=== PATIENT | female | born 1940 | race Caucasian/White ===

== ENCOUNTER 2022-11-05 21:34 | Inpatient (IN) | payer OTHER, SELFPAY ==
[2022-11-05 22:07] VITALS: BP 117/56; PULSE 87; RESP 18; TEMP 36.6; O2SAT 99
--- NOTE | 2022-11-06 04:38 | PC.NURSE ---
Patient is 82 y/o female admitted from ED via stretcher at 22:04 on a 12b section. Patient was referred from [facility] related to a history of multiple psychiatric inpatient care for depression and suicidal ideation. Patient lives alone in an apartment complex and presented more than 10 times in the past month to the ER with complaints of palpitations, anxiety, depression associated with her living condition. Patient has been experiencing delusions about an unruly neighbor who keeps banging and slamming his door to antagonize her, causing her undue stress. Patient called the police was called several times who could not corroborate her allegations. Patient was alert and oriented x 3 upon arrival, mildly agitated and angry, Speech is soft and clear, good eye contact during conversations, noted to have little to no insight on her situation. Stated that she does not want to be here against her will and wanted to go home. Patient fixated during assessment interview on neighbor Aravind Paige the [place] who keeps slamming his door and nobody would do anything about it. Endorsed feeling depressed, she denied any HI/SI/AH/VH. Patient acknowledged making statements of self harm out of hopelessness about living situation and declining ability to care for self. Patient quickly added that she would never hurt herself because of her religion belief, Latter day. Medical problems include anemia, atrial flutter, GERD, HDL; Hx of small bowel disease, opioid misuse. Vitals signs stable, no complaints of pain. call center support representative provider notified of admission. .......................................................................................................................................................................................................................................................... .......................................................................................................................................................................................................................................................... ............................................................................
[2022-11-06] MEDS: Acetaminophen 325 MG TABLET 650 MG PO ×2 (06:10→15:42)
[2022-11-06 06:39] LABS: Alanine Aminotransferase 10 U/L (0-31); Albumin Level 3.9 g/dL (3.5-5.0); Alkaline Phosphatase 93 U/L (39-117); Anion Gap 14 (12-20); Aspartate Amino Transferase 20 U/L (5-31); Blood Urea Nitrogen 15 mg/dL (9-16); Calcium 9.3 mg/dL (8.4-10.2); Carbon Dioxide 25 mmol/L (22-29); Chloride 106 mmol/L (96-108); Estimated Glomerular Filt Rate 54; Glucose Random 111 mg/dL (60-115); Potassium 3.9 mmol/L (3.3-5.1); Sodium 141 mmol/L (135-145); Total Protein 6.6 g/dL (6.5-8.0)
[2022-11-06 08:27] VITALS: BP 109/61; PULSE 85; RESP 20; TEMP 36.1; O2SAT 97
[2022-11-06] MEDS: Furosemide 20 MG TABLET PO (08:58)
--- NOTE | 2022-11-06 11:11 | HO.PM.IMCN ---
History of Present Illness Data of Consult Service Date: 11/06/22 Primary Care Provider: Unknown Physician HPI Reason for consult: Admission H&P Pt is an 82-year-old female with a PMH significant for?paroxysmal atrial flutter on Eliquis, mild intermittent asthma, HLD, HTN, chronic normocytic anemia, GERD, hypothyroidism, hx of opioid dependence, and depression who is admitted to [facility] for increasing agitation, passive SI, and persistent delusions about her neighbor persecuting her. Medical consult for admission H&P. ?During interview patient's only complaint is against her neighbor. Patient perseverating over her neighbor purposely bothering her by ?slamming his door? again and again. Patient has no acute medical complaints. Chronic back pain well controlled with acetaminophen. No chest pain/pressure, palpitations. Denies shortness of breath. No fever, chills, nausea, vomiting, diarrhea, abdominal pain. Patient with a history of asthma, the patient states she has not had an asthma exacerbation in a ?very long time?. Patient also does not know the last time she used her rescue inhaler. Review of Systems Review of Systems: Chronic back pain Patient has no acute medical complaints at this time Yes all other systems are reviewed and are negative PMFSH Social History Household Members: None Housing: Apartment Do you presently have visiting nurse or other home services: Yes ([employer]) Patient Tobacco Use Status: Never used Tobacco Use of substances other than those prescribed or required for medical reasons: No Currently Displaying Signs/Symptoms of Drug Intoxication Withdrawal: No Have you been hit, kicked, punched, or otherwise hurt by someone within the past year? If so, by whom?: No Do you feel safe in your current relationship?: No Current Relationship Is there a partner from a previous relationship who is making you feel unsafe now?: No Are you made to feel afraid or neglected: No Spiritual Healthcare Practices: Yazidism. Presybeterian Healthcare Practices: Yazidism. Cultural Healthcare Practices: Yazidism. Advance Directives: No Advance Directives Information Provided: No Do you have thoughts of harming others: None Do you have a plan to hurt others: No Plan Recently lost weight without trying: Unsure How much weight loss: Unsure Eating poorly because of decreased appetite: No Nutrition screen score: 4 Patient : No Poor oral hygiene: No Meds Allergies Allergy/AdvReac Type Severity Reaction Status Date / Time amoxicillin [From Augmentin] AdvReac Nausea and Verified 11/06/22 01:25 Vomiting aspirin AdvReac Nausea and Verified 11/06/22 01:27 Vomiting atenolol AdvReac Painful Verified 11/06/22 01:34 legs and moving toes clavulanic acid AdvReac Nausea and Verified 11/06/22 01:25 [From Augmentin] Vomiting doxycycline AdvReac Nausea Verified 11/06/22 01:33 erythromycin base AdvReac Nausea and Verified 11/06/22 01:25 Vomiting ibuprofen AdvReac Nausea and Verified 11/06/22 01:33 Vomiting levofloxacin [From Levaquin] AdvReac Nausea, Verified 11/06/22 01:25 Rash NSAIDS (Non-Steroidal AdvReac Nausea and Verified 11/06/22 01:27 Anti-Inflamma Vomiting raloxifene [From Evista] AdvReac Nausea and Verified 11/06/22 01:27 Vomiting terbinafine [From Lamisil] AdvReac Nausea and Verified 11/06/22 01:25 Vomiting Active Medications: Current Medications Acetaminophen (Acetaminophen 325 Mg Tablet) 650 mg PO Q6H PRN PRN Reason: Headache/Pain Mild Scale (1-3) Last Admin: 11/06/22 06:10 Dose: 650 mg Al Hydroxide/Mg Hydroxide (Magnesium Hydrox/Alum Hydrox 30 Ml Oral.Susp) 30 ml PO Q6H PRN PRN Reason: Heartburn/Nausea Furosemide (Furosemide 20 Mg Tablet) 20 mg PO DAILY JIM; Protocol Last Admin: 11/06/22 08:58 Dose: 20 mg Magnesium Hydroxide (Milk Of Magnesia 30 Ml Oral.Susp) 30 ml PO DAILY PRN PRN Reason: Constipation Home Medications Medication Instructions Recorded Confirmed Last Taken Type albuterol 90 mcg/actuation aerosol 180 mcg inhalation Q4H PRN Wheezing 11/06/22 11/06/22 Unknown History inhaler aluminum-mag hydroxide-simethicone 30 ml PO Q8H PRN Indigestion 11/06/22 11/06/22 11/05/22 16:18 History 225 mg-200 mg-25 mg/5 mL oral susp apixaban 2.5 mg tablet 2.5 mg PO BID 11/06/22 11/06/22 11/05/22 09:14 History atorvastatin 40 mg tablet 40 mg PO DAILY 11/06/22 11/06/22 11/05/22 09:14 History bupropion HCl 150 mg 24 hr tablet, 150 mg PO DAILY 11/06/22 11/06/22 11/04/22 23:33 History extended release duloxetine 30 mg capsule,delayed 30 mg PO DAILY 11/06/22 11/06/22 11/05/22 09:14 History release furosemide 20 mg tablet 20 mg DAILY 11/06/22 11/06/22 11/05/22 09:14 History gabapentin 100 mg capsule 200 mg PO BID 11/06/22 11/06/22 11/05/22 09:16 History levothyroxine 50 mcg tablet 50 mcg PO DAILY 11/06/22 11/06/22 11/05/22 07:20 History metoprolol tartrate 50 mg tablet 50 mg PO BID 11/06/22 11/06/22 11/04/22 23:32 History ondansetron HCl 4 mg tablet 4 mg PO Q8H PRN Nausea And Vomiting 11/06/22 11/06/22 Unknown History pantoprazole 40 mg tablet,delayed 40 mg PO DAILY 11/06/22 11/06/22 11/05/22 09:14 History release prochlorperazine maleate 5 mg 5 mg PO DAILY PRN Dyspepsia 11/06/22 11/06/22 Unknown History tablet trazodone 50 mg tablet 50 mg PO BEDTIME 11/06/22 11/06/22 11/04/22 23:32 History Physical Exam Vital Signs and Narrative: Vital Signs: Last Vital Signs Temp 97.0 F 11/06/22 08:27 Pulse 85 11/06/22 08:27 Resp 20 11/06/22 08:27 BP 109/61 11/06/22 08:27 Pulse Ox 97 11/06/22 08:27 O2 Del Method Room Air 11/06/22 08:27 Constitutional: Alert, in no acute distress. Mental Status: Oriented to person, place and time. Eyes: Pupils are equal, round, and reactive to light. Ear, Nose, and Throat: Oropharynx clear, mucous membranes moist. Ears and nose without deformities. Trachea midline. Respiratory: Clear to auscultation bilaterally. No wheezing, rales, or rhonchi. Cardiovascular: S1, S2 regular. No murmurs, rubs, or gallops. Gastrointestinal: Abdomen soft, non-tender, non-distended. Normal bowel sounds. Neurologic: Cranial nerves II-XII are grossly intact bilaterally. No focal neurological deficits. Moves all extremities spontaneously. Skin: No rashes or lesions noted. Musculoskeletal: No cyanosis or clubbing. Extremities: No edema. Psychiatric: Normal mood and affect, perseverating on her neighbor bothering her by slamming his door. Results Labs 11/06/22 06:15 Labs: Laboratory Results - last 24 hr 11/06/22 06:15 Anion Gap 14 Estim Creat Clear Calc TNP Estimated GFR 54 Random Glucose 111 Calcium 9.3 Total Bilirubin 1.0 AST 20 ALT 10 Alkaline Phosphatase 93 Total Protein 6.6 Albumin 3.9 Assessment and Plan (1) Routine history and physical examination of adult: Status: Acute Plan Pt is an 82-year-old female with a PMH significant for?paroxysmal atrial flutter on Eliquis, mild intermittent asthma, HLD, HTN, chronic normocytic anemia, GERD, hypothyroidism, hx of opioid dependence, and depression who is admitted to [facility] for increasing agitation, passive SI, and persistent delusions about her neighbor persecuting her. Medical consult for admission H&P. ?During interview patient's only complaint is against her neighbor. Patient perseverating over her neighbor purposely bothering her by ?slamming his door? again and again. Patient has no acute medical complaints. Mood disorder Plan as per Psychiatry Paroxysmal atrial flutter Continue metoprolol, Eliquis Normocytic anemia, chronic Patient apparently has had chronic stable anemia since 2000 Most current H&H stable at 11.2/36.6 Chronic back pain Acetaminophen per pain Mild intermittent asthma Not in acute exacerbation Patient said it has been ?a long time? since last exacerbation Patient does not remember last time she used an inhaler Albuterol inhaler p.r.n. for wheezing GERD Continue pantoprazole Hypothyroidism Continue levothyroxine HLD Continue statin HTN Continue furosemide Thank you for allowing us to participate in the care of this patient. Signing off at this time. Please let us know if there are any acute complaints or questions. Time Spent With Patient Time: Total time managing care of this patient today ____ minutes.
--- NOTE | 2022-11-06 12:42 | HO.PSYADMNOT ---
[facility] Date of Service: 11/06/22 Chief Complaint: Anxiety Disorder Sources of Information: patient interviewed, chart reviewed and crisis/core team assessment reviewed HPI Narrative: Patient is an 82-year-old female with history of depression and SI, AFib, with frequent emergency room visits for palpitations but found to be within NSR... who lives at [facility] and presents for making suicidal statement. Patient reports that she has been having a hard time since the person who lives across the [place] is planning his door frequently which she believes is to purposely bother her. She says she is depressed because she is not getting any rest and the staff let him do it. Patient denies any SI. She said she did think about it but she could never do it and would never go against God. [employer] Specialist inquired as to whether not patient made such a comment to staff and she acknowledged that she did make a suicidal comment but that when she is upset she says thing she does not mean and reiterates she would never harm herself. Patient does not want to be on the unit in the hospital. She wants to return to her living situation. She hopes the staff will either move his apartment or hers so that she can get relief from his constant slamming of the door. Care team note indicates that patient is having an auditory hallucination and delusional experience of the door slamming. Sending facility reports that patient after 1 of her numerous visits to the ED, she will go home and immediately call the ambulance to come back to the hospital. Patient's sister Ashlee Mendez is her healthcare proxy Past Psychiatric History: Deferred Medical Evaluation Reviewed: Hospitalist Marium Pending [facility] Family History: Possibly niece with bipolar disorder Social History: Lives at [facility] Patient's younger sister Ashlee is healthcare proxy Substance History: Some history of opiate misuse reported in notes Trauma History: Deferred Diagnostics Vital Signs (24Hr): Vital Signs - 24 hr 11/05/22 22:07 11/06/22 08:27 Temperature 98 F 97.0 F Pulse Rate 87 85 Respiratory Rate 18 20 Blood Pressure 117/56 L 109/61 Pulse Oximetry 99 97 Oxygen Delivery Method Room Air Room Air Labs 11/06/22 06:15 Labs: Laboratory Results - last 48 hr 11/06/22 06:15 Sodium 141 Potassium 3.9 Chloride 106 Carbon Dioxide 25 Anion Gap 14 BUN 15 Creatinine 0.98 Estim Creat Clear Calc TNP Estimated GFR 54 Random Glucose 111 Calcium 9.3 Total Bilirubin 1.0 AST 20 ALT 10 Alkaline Phosphatase 93 Total Protein 6.6 Albumin 3.9 Meds/Allergies Meds Home Medications Medication Instructions Recorded Confirmed Type albuterol 90 mcg/actuation aerosol 180 mcg inhalation Q4H PRN Wheezing 11/06/22 11/06/22 History inhaler aluminum-mag hydroxide-simethicone 30 ml PO Q8H PRN Indigestion 11/06/22 11/06/22 History 225 mg-200 mg-25 mg/5 mL oral susp apixaban 2.5 mg tablet 2.5 mg PO BID 11/06/22 11/06/22 History atorvastatin 40 mg tablet 40 mg PO DAILY 11/06/22 11/06/22 History bupropion HCl 150 mg 24 hr tablet, 150 mg PO DAILY 11/06/22 11/06/22 History extended release duloxetine 30 mg capsule,delayed 30 mg PO DAILY 11/06/22 11/06/22 History release furosemide 20 mg tablet 20 mg DAILY 11/06/22 11/06/22 History gabapentin 100 mg capsule 200 mg PO BID 11/06/22 11/06/22 History levothyroxine 50 mcg tablet 50 mcg PO DAILY 11/06/22 11/06/22 History metoprolol tartrate 50 mg tablet 50 mg PO BID 11/06/22 11/06/22 History ondansetron HCl 4 mg tablet 4 mg PO Q8H PRN Nausea And Vomiting 11/06/22 11/06/22 History pantoprazole 40 mg tablet,delayed 40 mg PO DAILY 11/06/22 11/06/22 History release prochlorperazine maleate 5 mg 5 mg PO DAILY PRN Dyspepsia 11/06/22 11/06/22 History tablet trazodone 50 mg tablet 50 mg PO BEDTIME 11/06/22 11/06/22 History Allergies Allergies Allergy/AdvReac Type Severity Reaction Status Date / Time amoxicillin [From Augmentin] AdvReac Nausea and Verified 11/06/22 01:25 Vomiting aspirin AdvReac Nausea and Verified 11/06/22 01:27 Vomiting atenolol AdvReac Painful Verified 11/06/22 01:34 legs and moving toes clavulanic acid AdvReac Nausea and Verified 11/06/22 01:25 [From Augmentin] Vomiting doxycycline AdvReac Nausea Verified 11/06/22 01:33 erythromycin base AdvReac Nausea and Verified 11/06/22 01:25 Vomiting ibuprofen AdvReac Nausea and Verified 11/06/22 01:33 Vomiting levofloxacin [From Levaquin] AdvReac Nausea, Verified 11/06/22 01:25 Rash NSAIDS (Non-Steroidal AdvReac Nausea and Verified 11/06/22 01:27 Anti-Inflamma Vomiting raloxifene [From Evista] AdvReac Nausea and Verified 11/06/22 01:27 Vomiting terbinafine [From Lamisil] AdvReac Nausea and Verified 11/06/22 01:25 Vomiting Mental Status Exam Mental Status Exam Narrative: Pt is alert and oriented; behavior is cooperative, friendly and calm; patient is not in distress; dressed in casual attire with adequate hygiene; mood is described as depressed and affect anxious; eye contact appropriate; Speech is normal rate, volume and prosody and not pressured; no psychomotor agitation/retardation present; thought process is goal directed; Thought content is on problem at living situation, upset that neighbor is slamming the door; no overt delusional content expressed; denies any SI/HI. Unclear if patient has auditory hallucinations. Patients insight and judgment impaired; unclear the degree Assessment & Plan Assessment & Plan (1) Adjustment disorder with mixed disturbance of emotions and conduct: Status: Acute Code(s): F43.25 - Adjustment disorder with mixed disturbance of emotions and conduct Plan Patient is an 82-year-old female with history of depression and SI, AFib, with frequent emergency room visits for palpitations but found to be within NSR... who lives at [facility] and presents for making suicidal statement. Patient reports that she has been having a hard time since the person who lives across the [place] is planning his door frequently which she believes is to purposely bother her. She denies SI saying that although she made a comment she would never actually hurt herself Formulation: -at this time will diagnose with adjustment disorder with disturbance of emotions and conduct; will need to further assess for dementia and other possible psychiatric processes including delusional/AVH -sending facility expresses concern is that patient may be having auditory hallucinations and delusional belief of the door slamming. Sending facility reports that patient after 1 of her numerous visits to the ED, she will go home and immediately call the ambulance to come back to the hospital. Will need collateral to assess -EKG normal sinus rhythm; review of labs CBC, lytes, BUN/creatinine WNL; COVID negative; on admission, reordered lytes, BUN/creatinine and liver enzymes and within normal limits does not appear UA was ordered so will order one now -Patient's sister Ashlee Mendez is her healthcare proxy PLAN: Section 12 b Q 15 minute checks Continue home meds Will gather collateral Will order UA since it was not done at sending facility Patient educated on: diagnosis Informed Consent: further education needed Reason for continued inpatient stay Substantial Risk for: inability to function Statement Statement: I have reviewed the history and physical and performed a pertinent examination on my patient. No changes have occurred unless specified. If the History and Physical was not performed prior to admission, the Hospitalist's service will be consulted for completing the admission physical. Time Spent With Patient Time: Total time managing care of this patient today ____ minutes.
[2022-11-06 13:28] VITALS: BMI 26.2
[2022-11-06] MEDS: Apixaban 2.5 MG TABLET PO ×2 (13:41→20:36)
[2022-11-06] MEDS: Gabapentin 100 MG CAPSULE 200 MG PO ×2 (13:41→20:36)
[2022-11-06] MEDS: Atorvastatin Calcium 40 MG TABLET PO (13:41)
[2022-11-06 19:50] VITALS: BP 132/68; PULSE 88; RESP 18; TEMP 36.8; O2SAT 98
[2022-11-07] MEDS: Omeprazole 20 MG CAPSULE.DR PO (05:58)
[2022-11-07] MEDS: Levothyroxine Sodium 50 MCG TABLET PO (05:58)
[2022-11-07 07:51] LABS: Alanine Aminotransferase 9 U/L (0-31); Albumin Level 3.9 g/dL (3.5-5.0); Alkaline Phosphatase 90 U/L (39-117); Aspartate Amino Transferase 18 U/L (5-31); Bilirubin Total 1.1 mg/dL (0.0-1.0); Blood Urea Nitrogen 16 mg/dL (9-16); Calcium 9.8 mg/dL (8.4-10.2); Creatinine Clr Calc Pharmacy 30.9; Estimated Glomerular Filt Rate 52; Glucose Fasting 100 mg/dL (60-99); Total Protein 6.7 g/dL (6.5-8.0)
[2022-11-07 08:11] VITALS: BP 143/63; PULSE 71; RESP 18; TEMP 36.3; O2SAT 100
[2022-11-07 08:23] LABS: Anion Gap 16 (12-20); Carbon Dioxide 24 mmol/L (22-29); Chloride 104 mmol/L (96-108); Sodium 140 mmol/L (135-145)
[2022-11-07] MEDS: Acetaminophen 325 MG TABLET 650 MG PO ×2 (10:02→18:45)
[2022-11-07] MEDS: Furosemide 20 MG TABLET PO (10:02)
[2022-11-07] MEDS: Apixaban 2.5 MG TABLET PO ×2 (10:02→20:15)
[2022-11-07] MEDS: Atorvastatin Calcium 40 MG TABLET PO (10:02)
[2022-11-07] MEDS: Gabapentin 100 MG CAPSULE 200 MG PO ×2 (10:02→20:16)
--- NOTE | 2022-11-07 12:13 | P.PNPSI_ITS ---
Subjective Subjective Date of Service: 11/07/22 Reason For Visit: Anxiety Disorder Interim History: Met with patient; discussed with team Patient remains pleasant and cooperative. She acknowledges that she can get confused but that she is trying her best. Patient said she had some trouble sleeping because the neighbor was slamming the door last night. She said at least that is my experience. Of note, nursing staff did say it is possible that a nearby door was slammed but that AH remains a possibility. Otherwise patient reported to be sleeping well; patient is eating well; taking medications Mental Status Exam Mental Status Exam Narrative: Pt is alert and oriented; behavior is cooperative, friendly and calm; patient is not in distress; dressed in casual attire with adequate hygiene; mood is described as ok and affect anxious; eye contact appropriate; Speech is normal rate, volume and prosody and not pressured; no psychomotor agitation/retardation present; thought process is goal directed; Thought content is on problem at living situation, upset that neighbor is slamming the door; no overt delusional content expressed; denies any SI/HI. possibly AH of door slamming. Patients insight and judgment impaired; unclear the degree Diagnostics Vital Signs (24Hr): Vital Signs - 24 hr 11/06/22 19:50 11/07/22 08:11 Temperature 98.2 F 97.3 F Pulse Rate 88 71 Respiratory Rate 18 18 Blood Pressure 132/68 143/63 H Pulse Oximetry 98 100 Oxygen Delivery Method Room Air Room Air BMI result Body Mass Index 26.2 Labs 11/07/22 07:00 Labs: Laboratory Results - last 48 hr 11/06/22 11/07/22 06:15 07:00 Sodium 141 140 Potassium 3.9 4.0 Chloride 106 104 Carbon Dioxide 25 24 Anion Gap 14 16 BUN 15 16 Creatinine 0.98 1.01 Estim Creat Clear Calc TNP 30.9 Estimated GFR 54 52 Random Glucose 111 Fasting Glucose 100 H Calcium 9.3 9.8 Total Bilirubin 1.0 1.1 H AST 20 18 ALT 10 9 Alkaline Phosphatase 93 90 Total Protein 6.6 6.7 Albumin 3.9 3.9 Medications Medications Current Medications Acetaminophen (Acetaminophen 325 Mg Tablet) 650 mg PO Q6H PRN PRN Reason: Headache/Pain Mild Scale (1-3) Last Admin: 11/07/22 10:02 Dose: 650 mg Al Hydroxide/Mg Hydroxide (Magnesium Hydrox/Alum Hydrox 30 Ml Oral.Susp) 30 ml PO Q6H PRN PRN Reason: Heartburn/Nausea Albuterol Sulfate (Albuterol Sulfate 90 Mcg 8 Gm Inhaler) 2 puff INHALE Q4H PRN PRN Reason: Wheezing Apixaban (Apixaban 2.5 Mg Tablet) 2.5 mg PO BID [facility] Last Admin: 11/07/22 10:02 Dose: 2.5 mg Atorvastatin Calcium (Atorvastatin Calcium 40 Mg Tablet) 40 mg PO DAILY [facility] Last Admin: 11/07/22 10:02 Dose: 40 mg Furosemide (Furosemide 20 Mg Tablet) 20 mg PO DAILY [facility]; Protocol Last Admin: 11/07/22 10:02 Dose: 20 mg Gabapentin (Gabapentin 100 Mg Capsule) 200 mg PO BID [facility] Last Admin: 11/07/22 10:02 Dose: 200 mg Levothyroxine Sodium (Levothyroxine Sodium 50 Mcg Tablet) 50 mcg PO DAILY@0600 [facility] Last Admin: 11/07/22 05:58 Dose: 50 mcg Magnesium Hydroxide (Milk Of Magnesia 30 Ml Oral.Susp) 30 ml PO DAILY PRN PRN Reason: Constipation Omeprazole (Omeprazole 20 Mg Capsule.Dr) 20 mg PO DAILY@0630 [facility] Last Admin: 11/07/22 05:58 Dose: 20 mg Ondansetron HCl (Ondansetron Odt 4 Mg Tab.Rapdis) 4 mg TRANSLINGU Q8H PRN PRN Reason: Nausea And Vomiting Prochlorperazine Maleate (Prochlorperazine Maleate 5 Mg Tablet) 5 mg PO DAILY PRN PRN Reason: Dyspepsia Trazodone HCl (Trazodone Hcl 25 Mg Halftab) 25 mg PO BEDTIME PRN PRN Reason: insomnia Allergies Allergies Allergy/AdvReac Type Severity Reaction Status Date / Time amoxicillin [From Augmentin] AdvReac Nausea and Verified 11/06/22 01:25 Vomiting aspirin AdvReac Nausea and Verified 11/06/22 01:27 Vomiting atenolol AdvReac Painful Verified 11/06/22 01:34 legs and moving toes clavulanic acid AdvReac Nausea and Verified 11/06/22 01:25 [From Augmentin] Vomiting doxycycline AdvReac Nausea Verified 11/06/22 01:33 erythromycin base AdvReac Nausea and Verified 11/06/22 01:25 Vomiting ibuprofen AdvReac Nausea and Verified 11/06/22 01:33 Vomiting levofloxacin [From Levaquin] AdvReac Nausea, Verified 11/06/22 01:25 Rash NSAIDS (Non-Steroidal AdvReac Nausea and Verified 11/06/22 01:27 Anti-Inflamma Vomiting raloxifene [From Evista] AdvReac Nausea and Verified 11/06/22 01:27 Vomiting terbinafine [From Lamisil] AdvReac Nausea and Verified 11/06/22 01:25 Vomiting Assessment & Plan Assessment & Plan (1) Adjustment disorder with mixed disturbance of emotions and conduct: Status: Acute Code(s): F43.25 - Adjustment disorder with mixed disturbance of emotions and conduct Plan Patient is an 82-year-old female with history of depression and SI, AFib, with frequent emergency room visits for palpitations but found to be within NSR... who lives at [facility] and presents for making suicidal statement.? Patient reports that she has been having a hard time since the person who lives [place] the [place] is planning his door frequently which she believes is to purposely bother her.? She denies SI saying that although she made a comment she would never actually hurt herself Formulation: -at this time will diagnose with adjustment disorder with disturbance of emotion s and conduct; will need to further assess for dementia and other possible psychiatric processes including delusional/AVH -sending facility expresses concern is that patient may be having auditory ayden lucinations and delusional belief of the door slamming.? Sending facility reports that patient after 1 of her numerous visits to the ED, she will go home and immediately call the ambulance to come back to the hospital.? Will need collateral to assess -EKG normal sinus rhythm; review of labs CBC, lytes, BUN/creatinine WNL; COVID negative; on admission, reordered lytes, BUN/creatinine and liver enzymes and within normal limits does not appear UA was ordered so will order one now -Patient's sister Ashlee Mendez is her healthcare proxy HOSPITAL COURSE: 11/07 remains pleasant; anxious; reports heard door slamming last night which is the report [facility] has at [facility]; this leans towards more likely being AH but nursing staff reports it is possible door was slammed near by her room last night. Continue current treatment plan PLAN: Section 12 b Q 15 minute checks Continue home meds Will gather collateral UA Pending (not done by sending facility) Paroxysmal atrial flutter Continue metoprolol, Eliquis Normocytic anemia, chronic Patient apparently has had chronic stable anemia since 2000 Most current H&H stable at 11.2/36.6 GERD Continue pantoprazole Hypothyroidism Continue levothyroxine HLD Continue statin HTN Continue furosemide Patient educated on: diagnosis Informed Consent: further education needed Reason for continued inpatient stay Substantial Risk for: inability to function Time Spent With Patient Time: Total time managing care of this patient today ____ minutes.
[2022-11-07 18:00] VITALS: BP 119/58; PULSE 90; RESP 18; TEMP 36; O2SAT 96
[2022-11-07] MEDS: traZODone HCL 25 MG HALFTAB PO (22:15)
[2022-11-08] MEDS: Omeprazole 20 MG CAPSULE.DR PO (06:35)
[2022-11-08] MEDS: Levothyroxine Sodium 50 MCG TABLET PO (06:35)
[2022-11-08 07:24] LABS: Appearance Urine Clear; Color Urine Yellow; Glucose Urine UA Negative (Negative); Leukocyte Esterase Urine Trace (Negative); Nitrite Urine Negative (Negative); Specific Gravity - Urine <= 1.005 (1.005-1.025); UMIC TRIGGER UACC YES; Urine Blood Negative (Negative); Urine Ketones Negative (Negative); Urine Protein Negative (Neg-Trace)
[2022-11-08 07:30] LABS: Bacteria Urine None Seen (None Seen); Hyaline Casts Urine 0-2 /LPF (0-2); RBC Urine 0-2 /HPF (0-2); Squamous Epithelial Cell Urine 0-2 /HPF (0-2); WBC Urine 0-5 /HPF (0-5)
[2022-11-08 09:45] VITALS: BP 115/61; PULSE 109; RESP 18; TEMP 36.2; O2SAT 97
[2022-11-08] MEDS: Furosemide 20 MG TABLET PO (10:56)
[2022-11-08] MEDS: Gabapentin 100 MG CAPSULE 200 MG PO ×2 (10:57→20:47)
[2022-11-08] MEDS: Atorvastatin Calcium 40 MG TABLET PO (10:57)
[2022-11-08] MEDS: Apixaban 2.5 MG TABLET PO ×2 (10:57→20:47)
--- NOTE | 2022-11-08 12:30 | P.PNPSI_ITS ---
Subjective Subjective Date of Service: 11/08/22 Reason For Visit: Anxiety Disorder Interim History: The nursing staff reported the patient had been anxious, pleasant and cooperative, she denies suicidal ideation and she reported that she had poor sleep and needed trazodone at night, she slept 8 hours. She adamantly denies suicidal ideation or homicidal ideation and she did not want to be here in the hospital. The occupational therapist did a [place] test and she scored 14/30 and her Amarjit test is 4.2 that indicates moderate cognitive impairment she is able to do her ADLs independently. On interview we discussed treatment options, apparently she has been paranoid against a peer and she wants to relocate to different places in the facility that she was living. We will try to gather collateral information with the criminal justice social worker. Mental Status Exam Mental Status Exam Patient Appearance: Well Grooomed and Appropriate Patient Orientation: Person and Situation Level of Consciousness: Awake and Appropriate Patient Behavior: Guarded and Passive Mood Description: Withdrawn Affect Description: Constricted Patient Cognition Impaired: Yes Ability to Follow Directions: Good Speech Pattern: Clear Hallucinations: None Delusions: Paranoid Ideation Thought Process: Distracted Thought Content: positive for Circumstantial Judgement: Fair Diagnostics Vital Signs (24Hr): Vital Signs - 24 hr 11/07/22 18:00 11/08/22 09:45 Temperature 96.8 F 97.1 F Pulse Rate 90 109 H Respiratory Rate 18 18 Blood Pressure 119/58 L 115/61 Pulse Oximetry 96 97 Oxygen Delivery Method Room Air Room Air BMI result Body Mass Index 26.2 Labs 11/07/22 07:00 Labs: Laboratory Results - last 48 hr 11/07/22 11/08/22 07:00 06:15 Sodium 140 Potassium 4.0 Chloride 104 Carbon Dioxide 24 Anion Gap 16 BUN 16 Creatinine 1.01 Estim Creat Clear Calc 30.9 Estimated GFR 52 Fasting Glucose 100 H Calcium 9.8 Total Bilirubin 1.1 H AST 18 ALT 9 Alkaline Phosphatase 90 Total Protein 6.7 Albumin 3.9 Urine Color Yellow Urine Appearance Clear Urine pH 6.0 Ur Specific [place] <= 1.005 Urine Protein Negative Urine Glucose (UA) Negative Urine Ketones Negative Urine Blood Negative Urine Nitrite Negative Ur Leukocyte Esterase Trace H Urine RBC 0-2 Urine WBC 0-5 Ur Squamous Epith Cells 0-2 Urine Bacteria None Seen Hyaline Casts 0-2 Medications Medications Current Medications Acetaminophen (Acetaminophen 325 Mg Tablet) 650 mg PO Q6H PRN PRN Reason: Headache/Pain Mild Scale (1-3) Last Admin: 11/07/22 18:45 Dose: 650 mg Al Hydroxide/Mg Hydroxide (Magnesium Hydrox/Alum Hydrox 30 Ml Oral.Susp) 30 ml PO Q6H PRN PRN Reason: Heartburn/Nausea Albuterol Sulfate (Albuterol Sulfate 90 Mcg 8 Gm Inhaler) 2 puff INHALE Q4H PRN PRN Reason: Wheezing Apixaban (Apixaban 2.5 Mg Tablet) 2.5 mg PO BID [facility] Last Admin: 11/08/22 10:57 Dose: 2.5 mg Atorvastatin Calcium (Atorvastatin Calcium 40 Mg Tablet) 40 mg PO DAILY [facility] Last Admin: 11/08/22 10:57 Dose: 40 mg Furosemide (Furosemide 20 Mg Tablet) 20 mg PO DAILY [facility]; Protocol Last Admin: 11/08/22 10:56 Dose: 20 mg Gabapentin (Gabapentin 100 Mg Capsule) 200 mg PO BID [facility] Last Admin: 11/08/22 10:57 Dose: 200 mg Levothyroxine Sodium (Levothyroxine Sodium 50 Mcg Tablet) 50 mcg PO DAILY@0600 [facility] Last Admin: 11/08/22 06:35 Dose: 50 mcg Magnesium Hydroxide (Milk Of Magnesia 30 Ml Oral.Susp) 30 ml PO DAILY PRN PRN Reason: Constipation Omeprazole (Omeprazole 20 Mg Capsule.Dr) 20 mg PO DAILY@0630 [facility] Last Admin: 11/08/22 06:35 Dose: 20 mg Ondansetron HCl (Ondansetron Odt 4 Mg Tab.Rapdis) 4 mg TRANSLINGU Q8H PRN PRN Reason: Nausea And Vomiting Prochlorperazine Maleate (Prochlorperazine Maleate 5 Mg Tablet) 5 mg PO DAILY PRN PRN Reason: Dyspepsia Trazodone HCl (Trazodone Hcl 25 Mg Halftab) 25 mg PO BEDTIME PRN PRN Reason: insomnia Last Admin: 11/07/22 22:15 Dose: 25 mg Allergies Allergies Allergy/AdvReac Type Severity Reaction Status Date / Time amoxicillin [From Augmentin] AdvReac Nausea and Verified 11/06/22 01:25 Vomiting aspirin AdvReac Nausea and Verified 11/06/22 01:27 Vomiting atenolol AdvReac Painful Verified 11/06/22 01:34 legs and moving toes clavulanic acid AdvReac Nausea and Verified 11/06/22 01:25 [From Augmentin] Vomiting doxycycline AdvReac Nausea Verified 11/06/22 01:33 erythromycin base AdvReac Nausea and Verified 11/06/22 01:25 Vomiting ibuprofen AdvReac Nausea and Verified 11/06/22 01:33 Vomiting levofloxacin [From Levaquin] AdvReac Nausea, Verified 11/06/22 01:25 Rash NSAIDS (Non-Steroidal AdvReac Nausea and Verified 11/06/22 01:27 Anti-Inflamma Vomiting raloxifene [From Evista] AdvReac Nausea and Verified 11/06/22 01:27 Vomiting terbinafine [From Lamisil] AdvReac Nausea and Verified 11/06/22 01:25 Vomiting Assessment & Plan Assessment & Plan (1) Adjustment disorder with mixed disturbance of emotions and conduct: Status: Acute Code(s): F43.25 - Adjustment disorder with mixed disturbance of emotions and conduct Plan Patient is an 82-year-old female with history of depression and SI, AFib, with f requent emergency room visits for palpitations but found to be within NSR... who lives at [facility] and presents for making suicidal statement.? Patient reports that she has been having a hard time since the person who lives [place] the [place] is planning his door frequently which she believes is to purposely bother her.? She denies SI saying that although she made a comment she would never actually hurt herself Formulation: -at this time will diagnose with adjustment disorder with disturbance of emotions and conduct; will need to further assess for dementia and other possible psychiatric processes including delusional/AVH -sending facility expresses concern is that patient may be having auditory hallucinations and delusional belief of the door slamming.? Sending facility reports that patient after 1 of her numerous visits to the ED, she will go home and immediately call the ambulance to come back to the hospital.? Will need collateral to assess -EKG normal sinus rhythm; review of labs CBC, lytes, BUN/creatinine WNL; COVID negative; on admission, reordered lytes, BUN/creatinine and liver enzymes and within normal limits does not appear UA was ordered so will order one now -Patient's sister Ashlee Mendez is her healthcare proxy HOSPITAL COURSE: 11/07 remains pleasant; anxious; reports heard door slamming last night which is the report she has at [facility]; this leans towards more likely being AH but nursing staff reports it is possible door was slammed near by her room last night. Continue current treatment plan PLAN: Section 12 b Q 15 minute checks Continue home meds Will gather collateral UA Pending (not done by sending facility) Paroxysmal atrial flutter Continue metoprolol, Eliquis Normocytic anemia, chronic Patient apparently has had chronic stable anemia since 2000 Most current H&H stable at 11.2/36.6 GERD Continue pantoprazole Hypothyroidism Continue levothyroxine HLD Continue statin HTN Continue furosemide Reason for continued inpatient stay Substantial Risk for: inability to function, rapid decompensation and med/psych decompensation Time Spent With Patient Time: Total time managing care of this patient today _20 ___ minutes.
[2022-11-08 18:00] VITALS: BP 138/68; PULSE 103; RESP 18; TEMP 36.3; O2SAT 99
[2022-11-08] MEDS: traZODone HCL 25 MG HALFTAB PO (20:47)
[2022-11-08] MEDS: Acetaminophen 325 MG TABLET 650 MG PO (21:13)
[2022-11-09] MEDS: Levothyroxine Sodium 50 MCG TABLET PO (06:12)
[2022-11-09] MEDS: Omeprazole 20 MG CAPSULE.DR PO (06:12)
[2022-11-09 08:33] VITALS: BP 124/68; PULSE 85; RESP 16; TEMP 36.3; O2SAT 97
[2022-11-09] MEDS: Apixaban 2.5 MG TABLET PO ×2 (08:35→19:53)
[2022-11-09] MEDS: Atorvastatin Calcium 40 MG TABLET PO (08:35)
[2022-11-09] MEDS: Furosemide 20 MG TABLET PO (08:35)
[2022-11-09] MEDS: Gabapentin 100 MG CAPSULE 200 MG PO ×2 (08:35→19:53)
[2022-11-09] MEDS: Acetaminophen 325 MG TABLET 650 MG PO ×2 (08:35→17:49)
--- NOTE | 2022-11-09 13:49 | HO.PSYCHPN ---
Subjective Subjective Date of Service: 11/09/22 Reason For Visit: Anxiety Disorder Subjective Notes: Conditional Voluntary Interim History: The nursing staff reported the patient had been medication compliant, he has been pleasant and cooperative talkative. 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 The occupational therapy reported that she scored 40/30 on the [place] and 4.2 in the Amarjit test. Apparently she had been 4 times in the emergency room before coming here. On interview the patient denies new symptoms she looks pleasantly confused easily redirectable. Mental Status Exam Mental Status Exam Patient Appearance: Well Grooomed and Appropriate Patient Orientation: Person and Situation Level of Consciousness: Awake and Appropriate Patient Behavior: Passive Mood Description: Calm Affect Description: Constricted Patient Cognition Impaired: Yes Ability to Follow Directions: Good Speech Pattern: Clear Hallucinations: None Delusions: Not Present Thought Process: Linear Thought Content: positive for Circumstantial Judgement: Fair Diagnostics Vital Signs (24Hr): Vital Signs - 24 hr 11/08/22 18:00 11/09/22 08:33 Temperature 97.3 F 97.3 F Pulse Rate 103 H 85 Respiratory Rate 18 16 Blood Pressure 138/68 124/68 Pulse Oximetry 99 97 Oxygen Delivery Method Room Air Room Air BMI result Body Mass Index 26.2 Labs 11/07/22 07:00 Labs: Laboratory Results - last 48 hr 11/08/22 06:15 Urine Color Yellow Urine Appearance Clear Urine pH 6.0 Ur Specific [place] <= 1.005 Urine Protein Negative Urine Glucose (UA) Negative Urine Ketones Negative Urine Blood Negative Urine Nitrite Negative Ur Leukocyte Esterase Trace H Urine RBC 0-2 Urine WBC 0-5 Ur Squamous Epith Cells 0-2 Urine Bacteria None Seen Hyaline Casts 0-2 Medications Medications Current Medications Acetaminophen (Acetaminophen 325 Mg Tablet) 650 mg PO Q6H PRN PRN Reason: Headache/Pain Mild Scale (1-3) Last Admin: 11/09/22 08:35 Dose: 650 mg Al Hydroxide/Mg Hydroxide (Magnesium Hydrox/Alum Hydrox 30 Ml Oral.Susp) 30 ml PO Q6H PRN PRN Reason: Heartburn/Nausea Albuterol Sulfate (Albuterol Sulfate 90 Mcg 8 Gm Inhaler) 2 puff INHALE Q4H PRN PRN Reason: Wheezing Apixaban (Apixaban 2.5 Mg Tablet) 2.5 mg PO BID [facility] Last Admin: 11/09/22 08:35 Dose: 2.5 mg Atorvastatin Calcium (Atorvastatin Calcium 40 Mg Tablet) 40 mg PO DAILY [facility] Last Admin: 11/09/22 08:35 Dose: 40 mg Furosemide (Furosemide 20 Mg Tablet) 20 mg PO DAILY [facility]; Protocol Last Admin: 11/09/22 08:35 Dose: 20 mg Gabapentin (Gabapentin 100 Mg Capsule) 200 mg PO BID [facility] Last Admin: 11/09/22 08:35 Dose: 200 mg Levothyroxine Sodium (Levothyroxine Sodium 50 Mcg Tablet) 50 mcg PO DAILY@0600 [facility] Last Admin: 11/09/22 06:12 Dose: 50 mcg Magnesium Hydroxide (Milk Of Magnesia 30 Ml Oral.Susp) 30 ml PO DAILY PRN PRN Reason: Constipation Omeprazole (Omeprazole 20 Mg Capsule.Dr) 20 mg PO DAILY@0630 [facility] Last Admin: 11/09/22 06:12 Dose: 20 mg Ondansetron HCl (Ondansetron Odt 4 Mg Tab.Rapdis) 4 mg TRANSLINGU Q8H PRN PRN Reason: Nausea And Vomiting Prochlorperazine Maleate (Prochlorperazine Maleate 5 Mg Tablet) 5 mg PO DAILY PRN PRN Reason: Dyspepsia Trazodone HCl (Trazodone Hcl 25 Mg Halftab) 25 mg PO BEDTIME PRN PRN Reason: insomnia Last Admin: 11/08/22 20:47 Dose: 25 mg Allergies Allergies Allergy/AdvReac Type Severity Reaction Status Date / Time amoxicillin [From Augmentin] AdvReac Nausea and Verified 11/06/22 01:25 Vomiting aspirin AdvReac Nausea and Verified 11/06/22 01:27 Vomiting atenolol AdvReac Painful Verified 11/06/22 01:34 legs and moving toes clavulanic acid AdvReac Nausea and Verified 11/06/22 01:25 [From Augmentin] Vomiting doxycycline AdvReac Nausea Verified 11/06/22 01:33 erythromycin base AdvReac Nausea and Verified 11/06/22 01:25 Vomiting ibuprofen AdvReac Nausea and Verified 11/06/22 01:33 Vomiting levofloxacin [From Levaquin] AdvReac Nausea, Verified 11/06/22 01:25 Rash NSAIDS (Non-Steroidal AdvReac Nausea and Verified 11/06/22 01:27 Anti-Inflamma Vomiting raloxifene [From Evista] AdvReac Nausea and Verified 11/06/22 01:27 Vomiting terbinafine [From Lamisil] AdvReac Nausea and Verified 11/06/22 01:25 Vomiting Assessment & Plan Assessment & Plan (1) Adjustment disorder with mixed disturbance of emotions and conduct: Status: Acute Code(s): F43.25 - Adjustment disorder with mixed disturbance of emotions and conduct Plan Patient is an 82-year-old female with history of depression and SI, AFib, with frequent emergency room visits for palpitations but found to be within NSR... who lives at [facility] [address] and presents for making suicidal statement.? Patient reports that she has been having a hard time since the person who lives [place] the [place] is planning his door frequently which she believes is to purposely bother her.? She denies SI saying that although she made a comment she would never actually hurt herself Formulation: -at this time will diagnose with adjustment disorder with disturbance of emotions and conduct; will need to further assess for dementia and other possible psychiatric processes including delusional/AVH -sending facility expresses concern is that patient may be having auditory hallucinations and delusional belief of the door slamming.? Sending facility reports that patient after 1 of her numerous visits to the ED, she will go home and immediately call the ambulance to come back to the hospital.? Will need collateral to assess -EKG normal sinus rhythm; review of labs CBC, lytes, BUN/creatinine WNL; COVID negative; on admission, reordered lytes, BUN/creatinine and liver enzymes and within normal limits does not appear UA was ordered so will order one now -Patient's sister Ashlee Mendez is her healthcare proxy HOSPITAL COURSE: 11/07 remains pleasant; anxious; reports heard door slamming last night which is the report she has at skilled nursing; this leans towards more likely being AH but nursing staff reports it is possible door was slammed near by her room last night. Continue current treatment plan PLAN: Section 12 b Q 15 minute checks Continue home meds Will gather collateral UA Pending (not done by sending facility) Paroxysmal atrial flutter Continue metoprolol, Eliquis Normocytic anemia, chronic Patient apparently has had chronic stable anemia since 2000 Most current H&H stable at 11.2/36.6 GERD Continue pantoprazole Hypothyroidism Continue levothyroxine HLD Continue statin HTN Continue furosemide Plan 1. Gather collateral information we will try to contact her family and get more information. 2. Continue with same medications. 3. Follow-up with Medicine regarding medical concerns. Reason for continued inpatient stay Substantial Risk for: inability to function, rapid decompensation and med/psych decompensation Time Spent With Patient Time: Total time managing care of this patient today __20__ minutes.
[2022-11-09 18:00] VITALS: BP 171/68; PULSE 105; RESP 16; TEMP 36.6; O2SAT 97
[2022-11-09] MEDS: traZODone HCL 25 MG HALFTAB PO (19:54)
--- NOTE | 2022-11-10 00:22 | PC.NURSE ---
Addendum entered by Franny Perez RN 11/10/22 06:59: offered tylenol but pt refused. Vital signs stable. Addendum entered by Franny Perez RN 11/10/22 06:55: [id number] pt c/o chest pain initially to the [employer]. RN assessed the pt at bedside, pt reported of generalized pain. pt wants to go home. Original Note: Assumed care at 2330. pt is asleep.
[2022-11-10] MEDS: Levothyroxine Sodium 50 MCG TABLET PO (05:09)
[2022-11-10] MEDS: Omeprazole 20 MG CAPSULE.DR PO (05:09)
[2022-11-10 06:00] VITALS: BP 132/62; PULSE 88; RESP 22; O2SAT 100
[2022-11-10 08:00] VITALS: BP 121/56; PULSE 106; RESP 18; TEMP 36.9; O2SAT 100
[2022-11-10] MEDS: Apixaban 2.5 MG TABLET PO ×2 (08:45→20:52)
[2022-11-10] MEDS: Atorvastatin Calcium 40 MG TABLET PO (08:45)
[2022-11-10] MEDS: Furosemide 20 MG TABLET PO (08:45)
[2022-11-10] MEDS: Gabapentin 100 MG CAPSULE 200 MG PO ×2 (08:46→20:52)
[2022-11-10] MEDS: Acetaminophen 325 MG TABLET 650 MG PO ×2 (13:24→20:52)
--- NOTE | 2022-11-10 13:51 | HO.PSYCHPN ---
Subjective Subjective Date of Service: 11/10/22 Reason For Visit: Anxiety Disorder Subjective Notes: Conditional Voluntary Interim History: The nursing staff reported the patient had been going to groups, she was tearful in the evening a complained the pain. The social sciences instructor reported that she has several services at home and we will contact her family. On interview the patient denies new symptoms she wants to go back to her home, no insight into her condition. Mental Status Exam Mental Status Exam Patient Appearance: Well Grooomed and Appropriate Patient Orientation: Person and Situation Level of Consciousness: Awake and Appropriate Patient Behavior: Guarded and Passive Mood Description: Calm Affect Description: Constricted Patient Cognition Impaired: Yes Ability to Follow Directions: Good Speech Pattern: Clear Hallucinations: None Delusions: Paranoid Ideation Thought Process: Distracted and Slowed Thinking Thought Content: positive for [place] and positive for Poverty of Content Judgement: Fair Diagnostics Vital Signs (24Hr): Vital Signs - 24 hr 11/09/22 18:00 11/10/22 06:00 11/10/22 08:00 Temperature 97.9 F 98.4 F Pulse Rate 105 H 88 106 H Respiratory Rate 16 22 H 18 Blood Pressure 171/68 H 132/62 121/56 L Pulse Oximetry 97 100 100 Oxygen Delivery Method Room Air Room Air Room Air BMI result Body Mass Index 26.2 Labs 11/07/22 07:00 Medications Medications Current Medications Acetaminophen (Acetaminophen 325 Mg Tablet) 650 mg PO Q6H PRN PRN Reason: Headache/Pain Mild Scale (1-3) Last Admin: 11/10/22 13:24 Dose: 650 mg Al Hydroxide/Mg Hydroxide (Magnesium Hydrox/Alum Hydrox 30 Ml Oral.Susp) 30 ml PO Q6H PRN PRN Reason: Heartburn/Nausea Albuterol Sulfate (Albuterol Sulfate 90 Mcg 8 Gm Inhaler) 2 puff INHALE Q4H PRN PRN Reason: Wheezing Apixaban (Apixaban 2.5 Mg Tablet) 2.5 mg PO BID REPLACED BY [facility] Last Admin: 11/10/22 08:45 Dose: 2.5 mg Atorvastatin Calcium (Atorvastatin Calcium 40 Mg Tablet) 40 mg PO DAILY REPLACED BY [facility] Last Admin: 11/10/22 08:45 Dose: 40 mg Furosemide (Furosemide 20 Mg Tablet) 20 mg PO DAILY REPLACED BY [facility]; Protocol Last Admin: 11/10/22 08:45 Dose: 20 mg Gabapentin (Gabapentin 100 Mg Capsule) 200 mg PO BID REPLACED BY [facility] Last Admin: 11/10/22 08:46 Dose: 200 mg Levothyroxine Sodium (Levothyroxine Sodium 50 Mcg Tablet) 50 mcg PO DAILY@0600 REPLACED BY [facility] Last Admin: 11/10/22 05:09 Dose: 50 mcg Magnesium Hydroxide (Milk Of Magnesia 30 Ml Oral.Susp) 30 ml PO DAILY PRN PRN Reason: Constipation Omeprazole (Omeprazole 20 Mg Capsule.Dr) 20 mg PO DAILY@0630 REPLACED BY [facility] Last Admin: 11/10/22 05:09 Dose: 20 mg Ondansetron HCl (Ondansetron Odt 4 Mg Tab.Rapdis) 4 mg TRANSLINGU Q8H PRN PRN Reason: Nausea And Vomiting Prochlorperazine Maleate (Prochlorperazine Maleate 5 Mg Tablet) 5 mg PO DAILY PRN PRN Reason: Dyspepsia Trazodone HCl (Trazodone Hcl 25 Mg Halftab) 25 mg PO BEDTIME PRN PRN Reason: insomnia Last Admin: 11/09/22 19:54 Dose: 25 mg Allergies Allergies Allergy/AdvReac Type Severity Reaction Status Date / Time amoxicillin [From Augmentin] AdvReac Nausea and Verified 11/06/22 01:25 Vomiting aspirin AdvReac Nausea and Verified 11/06/22 01:27 Vomiting atenolol AdvReac Painful Verified 11/06/22 01:34 legs and moving toes clavulanic acid AdvReac Nausea and Verified 11/06/22 01:25 [From Augmentin] Vomiting doxycycline AdvReac Nausea Verified 11/06/22 01:33 erythromycin base AdvReac Nausea and Verified 11/06/22 01:25 Vomiting ibuprofen AdvReac Nausea and Verified 11/06/22 01:33 Vomiting levofloxacin [From Levaquin] AdvReac Nausea, Verified 11/06/22 01:25 Rash NSAIDS (Non-Steroidal AdvReac Nausea and Verified 11/06/22 01:27 Anti-Inflamma Vomiting raloxifene [From Evista] AdvReac Nausea and Verified 11/06/22 01:27 Vomiting terbinafine [From Lamisil] AdvReac Nausea and Verified 11/06/22 01:25 Vomiting Assessment & Plan Assessment & Plan (1) Adjustment disorder with mixed disturbance of emotions and conduct: Status: Acute Code(s): F43.25 - Adjustment disorder with mixed disturbance of emotions and conduct Plan Patient is an 82-year-old female with history of depression and SI, AFib, with frequent emergency room visits for palpitations but found to be within NSR... who lives at [facility] and presents for making suicidal statement.? Patient reports that she has been having a hard time since the person who lives [place] the [place] is planning his door frequently which she believes is to purposely bother her.? She denies SI saying that although she made a comment she would never actually hurt herself Formulation: -at this time will diagnose with adjustment disorder with disturbance of emotions and conduct; will need to further assess for dementia and other possible psychiatric processes including delusional/AVH -sending facility expresses concern is that patient may be having auditory hallucinations and delusional belief of the door slamming.? Sending facility reports that patient after 1 of her numerous visits to the ED, she will go home and immediately call the ambulance to come back to the hospital.? Will need collateral to assess -EKG normal sinus rhythm; review of labs CBC, lytes, BUN/creatinine WNL; COVID negative; on admission, reordered lytes, BUN/creatinine and liver enzymes and within normal limits does not appear UA was ordered so will order one now -Patient's sister Ashlee Mendez is her healthcare proxy HOSPITAL COURSE: 11/07 remains pleasant; anxious; reports heard door slamming last night which is the report she has at alf; this leans towards more likely being AH but nursing staff reports it is possible door was slammed near by her room last night. Continue current treatment plan PLAN: Section 12 b Q 15 minute checks Continue home meds Will gather collateral UA Pending (not done by sending facility) Paroxysmal atrial flutter Continue metoprolol, Eliquis Normocytic anemia, chronic Patient apparently has had chronic stable anemia since 2000 Most current H&H stable at 11.2/36.6 GERD Continue pantoprazole Hypothyroidism Continue levothyroxine HLD Continue statin HTN Continue furosemide Plan 1. Gather collateral information we will try to contact her family and get more information. 2. Continue with same medications. 3. Follow-up with Medicine regarding medical concerns. Reason for continued inpatient stay Substantial Risk for: inability to function, rapid decompensation and med/psych decompensation Time Spent With Patient Time: Total time managing care of this patient today __20__ minutes.
[2022-11-10 18:00] VITALS: BP 122/66; PULSE 96; RESP 18; TEMP 36.1; O2SAT 99
[2022-11-10] MEDS: traZODone HCL 25 MG HALFTAB PO (20:52)
[2022-11-11] MEDS: Levothyroxine Sodium 50 MCG TABLET PO (05:58)
[2022-11-11] MEDS: Omeprazole 20 MG CAPSULE.DR PO (05:58)
[2022-11-11 07:00] VITALS: BMI 27.0
[2022-11-11 07:30] VITALS: BP 128/76; PULSE 104; RESP 16; TEMP 36.4; O2SAT 97
[2022-11-11] MEDS: Atorvastatin Calcium 40 MG TABLET PO (09:12)
[2022-11-11] MEDS: Gabapentin 100 MG CAPSULE 200 MG PO ×2 (09:12→20:42)
[2022-11-11] MEDS: Apixaban 2.5 MG TABLET PO ×2 (09:13→20:43)
[2022-11-11] MEDS: Furosemide 20 MG TABLET PO (10:12)
[2022-11-11] MEDS: Acetaminophen 325 MG TABLET 650 MG PO ×2 (14:43→20:42)
--- NOTE | 2022-11-11 15:32 | P.PNPSI_ITS ---
Subjective Subjective Date of Service: 11/11/22 Reason For Visit: Anxiety Disorder Subjective Notes: Conditional Voluntary Interim History: The nursing staff reported the patient had being compliant with treatment. She remains confused, persecutory delusions Are still present stating that there is a resident that makes noise at night in her facility and she feels exhausted. Unable to remember that we had the same conversation yesterday Mental Status Exam Mental Status Exam Patient Appearance: Appropriate Patient Orientation: Person and Situation Level of Consciousness: Awake and Appropriate Patient Behavior: Guarded and Passive Mood Description: Withdrawn Affect Description: Constricted Patient Cognition Impaired: Yes Ability to Follow Directions: Good Speech Pattern: Impoverished Hallucinations: None Delusions: Paranoid Ideation Thought Process: Distracted and Evasive Thought Content: positive for Poverty of Content Judgement: Poor Diagnostics Vital Signs (24Hr): Vital Signs - 24 hr 11/10/22 18:00 11/11/22 07:30 Temperature 97 F 97.6 F Pulse Rate 96 104 H Respiratory Rate 18 16 Blood Pressure 122/66 128/76 Pulse Oximetry 99 97 Oxygen Delivery Method Room Air Room Air BMI result Body Mass Index 27.0 Labs 11/07/22 07:00 Medications Medications Current Medications Acetaminophen (Acetaminophen 325 Mg Tablet) 650 mg PO Q6H PRN PRN Reason: Headache/Pain Mild Scale (1-3) Last Admin: 11/11/22 14:43 Dose: 650 mg Al Hydroxide/Mg Hydroxide (Magnesium Hydrox/Alum Hydrox 30 Ml Oral.Susp) 30 ml PO Q6H PRN PRN Reason: Heartburn/Nausea Albuterol Sulfate (Albuterol Sulfate 90 Mcg 8 Gm Inhaler) 2 puff INHALE Q4H PRN PRN Reason: Wheezing Apixaban (Apixaban 2.5 Mg Tablet) 2.5 mg PO BID [facility] Last Admin: 11/11/22 09:13 Dose: 2.5 mg Atorvastatin Calcium (Atorvastatin Calcium 40 Mg Tablet) 40 mg PO DAILY [facility] Last Admin: 11/11/22 09:12 Dose: 40 mg Furosemide (Furosemide 20 Mg Tablet) 20 mg PO DAILY [facility]; Protocol Last Admin: 11/11/22 10:12 Dose: 20 mg Gabapentin (Gabapentin 100 Mg Capsule) 200 mg PO BID [facility] Last Admin: 11/11/22 09:12 Dose: 200 mg Levothyroxine Sodium (Levothyroxine Sodium 50 Mcg Tablet) 50 mcg PO DAILY@0600 [facility] Last Admin: 11/11/22 05:58 Dose: 50 mcg Magnesium Hydroxide (Milk Of Magnesia 30 Ml Oral.Susp) 30 ml PO DAILY PRN PRN Reason: Constipation Omeprazole (Omeprazole 20 Mg Capsule.Dr) 20 mg PO DAILY@0630 [facility] Last Admin: 11/11/22 05:58 Dose: 20 mg Ondansetron HCl (Ondansetron Odt 4 Mg Tab.Rapdis) 4 mg TRANSLINGU Q8H PRN PRN Reason: Nausea And Vomiting Prochlorperazine Maleate (Prochlorperazine Maleate 5 Mg Tablet) 5 mg PO DAILY PRN PRN Reason: Dyspepsia Trazodone HCl (Trazodone Hcl 25 Mg Halftab) 25 mg PO BEDTIME PRN PRN Reason: insomnia Last Admin: 11/10/22 20:52 Dose: 25 mg Allergies Allergies Allergy/AdvReac Type Severity Reaction Status Date / Time amoxicillin [From Augmentin] AdvReac Nausea and Verified 11/06/22 01:25 Vomiting aspirin AdvReac Nausea and Verified 11/06/22 01:27 Vomiting atenolol AdvReac Painful Verified 11/06/22 01:34 legs and moving toes clavulanic acid AdvReac Nausea and Verified 11/06/22 01:25 [From Augmentin] Vomiting doxycycline AdvReac Nausea Verified 11/06/22 01:33 erythromycin base AdvReac Nausea and Verified 11/06/22 01:25 Vomiting ibuprofen AdvReac Nausea and Verified 11/06/22 01:33 Vomiting levofloxacin [From Levaquin] AdvReac Nausea, Verified 11/06/22 01:25 Rash NSAIDS (Non-Steroidal AdvReac Nausea and Verified 11/06/22 01:27 Anti-Inflamma Vomiting raloxifene [From Evista] AdvReac Nausea and Verified 11/06/22 01:27 Vomiting terbinafine [From Lamisil] AdvReac Nausea and Verified 11/06/22 01:25 Vomiting Assessment & Plan Assessment & Plan (1) Adjustment disorder with mixed disturbance of emotions and conduct: Status: Acute Code(s): F43.25 - Adjustment disorder with mixed disturbance of emotions and conduct Plan Patient is an 82-year-old female with history of depression and SI, AFib, with frequent emergency room visits for palpitations but found to be within NSR... who lives at [facility] and presents for making suicidal statement.? Patient reports that she has been having a hard time since the person who lives [place] the [place] is planning his door frequently which she believes is to purposely bother her.? She denies SI saying that although she made a comment she would never actually hurt herself Formulation: -at this time will diagnose with adjustment disorder with disturbance of emotions and conduct; will need to further assess for dementia and other possible psychiatric processes including delusional/AVH -sending facility expresses concern is that patient may be having auditory hallucinations and delusional belief of the door slamming.? Sending facility reports that patient after 1 of her numerous visits to the ED, she will go home and immediately call the ambulance to come back to the hospital.? Will need collateral to assess -EKG normal sinus rhythm; review of labs CBC, lytes, BUN/creatinine WNL; COVID negative; on admission, reordered lytes, BUN/creatinine and liver enzymes and within normal limits does not appear UA was ordered so will order one now -Patient's sister Ashlee Mendez is her healthcare proxy HOSPITAL COURSE: 11/07 remains pleasant; anxious; reports heard door slamming last night which is the report she has at custodial; this leans towards more likely being AH but nursing staff reports it is possible door was slammed near by her room last night. Continue current treatment plan PLAN: Section 12 b Q 15 minute checks Continue home meds Will gather collateral UA Pending (not done by sending facility) Paroxysmal atrial flutter Continue metoprolol, Eliquis Normocytic anemia, chronic Patient apparently has had chronic stable anemia since 2000 Most current H&H stable at 11.2/36.6 GERD Continue pantoprazole Hypothyroidism Continue levothyroxine HLD Continue statin HTN Continue furosemide Plan 1. Gather collateral information we will try to contact her family and get more information. 2. Continue with same medications. 3. Follow-up with Medicine regarding medical concerns. Reason for continued inpatient stay Substantial Risk for: inability to function, rapid decompensation and med/psych decompensation Time Spent With Patient Time: Total time managing care of this patient today __20__ minutes.
[2022-11-11 18:00] VITALS: BP 117/57; PULSE 96; RESP 18; TEMP 36.2; O2SAT 98
[2022-11-11] MEDS: traZODone HCL 25 MG HALFTAB PO (20:42)
[2022-11-12] MEDS: Omeprazole 20 MG CAPSULE.DR PO (05:37)
[2022-11-12] MEDS: Levothyroxine Sodium 50 MCG TABLET PO (05:37)
[2022-11-12 08:00] VITALS: BP 137/63; PULSE 98; RESP 18; TEMP 36.4; O2SAT 100
[2022-11-12] MEDS: Apixaban 2.5 MG TABLET PO ×2 (08:33→20:05)
[2022-11-12] MEDS: Gabapentin 100 MG CAPSULE 200 MG PO ×2 (08:34→20:05)
[2022-11-12] MEDS: Atorvastatin Calcium 40 MG TABLET PO (08:34)
[2022-11-12] MEDS: Furosemide 20 MG TABLET PO (08:34)
--- NOTE | 2022-11-12 12:35 | P.PNPSI_ITS ---
Subjective Subjective Date of Service: 11/12/22 Reason For Visit: Anxiety Disorder Subjective Notes: Conditional Voluntary Interim History: The nursing staff reported the patient had been compliant with treatment, she remains perseverative regarding the neighbor but according to the collateral information found but the social work specialist there is no person who makes noise at night and slams the door. The occupational therapist scored her [place] and 14/30 and 4.3 on the Amarjit test. Today we discussed risks and benefits she agreed to take a low dose of Zyprexa to help her with her paranoia. Mental Status Exam Mental Status Exam Patient Appearance: Well Grooomed and Appropriate Patient Orientation: Person and Situation Level of Consciousness: Awake and Appropriate Patient Behavior: Guarded and Passive Mood Description: Withdrawn and Constricted Affect Description: Calm Patient Cognition Impaired: Yes Ability to Follow Directions: Good Speech Pattern: Clear Hallucinations: None Delusions: Paranoid Ideation Thought Process: Distracted and Evasive Thought Content: positive for [place] and positive for Poverty of Content Judgement: Fair Diagnostics Vital Signs (24Hr): Vital Signs - 24 hr 11/11/22 18:00 11/12/22 08:00 Temperature 97.1 F 97.5 F Pulse Rate 96 98 Respiratory Rate 18 18 Blood Pressure 117/57 L 137/63 Pulse Oximetry 98 100 Oxygen Delivery Method Room Air Room Air BMI result Body Mass Index 27.0 Labs 11/07/22 07:00 Medications Medications Current Medications Acetaminophen (Acetaminophen 325 Mg Tablet) 650 mg PO Q6H PRN PRN Reason: Headache/Pain Mild Scale (1-3) Last Admin: 11/11/22 20:42 Dose: 650 mg Al Hydroxide/Mg Hydroxide (Magnesium Hydrox/Alum Hydrox 30 Ml Oral.Susp) 30 ml PO Q6H PRN PRN Reason: Heartburn/Nausea Albuterol Sulfate (Albuterol Sulfate 90 Mcg 8 Gm Inhaler) 2 puff INHALE Q4H PRN PRN Reason: Wheezing Apixaban (Apixaban 2.5 Mg Tablet) 2.5 mg PO BID [facility] Last Admin: 11/12/22 08:33 Dose: 2.5 mg Atorvastatin Calcium (Atorvastatin Calcium 40 Mg Tablet) 40 mg PO DAILY [facility] Last Admin: 11/12/22 08:34 Dose: 40 mg Furosemide (Furosemide 20 Mg Tablet) 20 mg PO DAILY [facility]; Protocol Last Admin: 11/12/22 08:34 Dose: 20 mg Gabapentin (Gabapentin 100 Mg Capsule) 200 mg PO BID [facility] Last Admin: 11/12/22 08:34 Dose: 200 mg Levothyroxine Sodium (Levothyroxine Sodium 50 Mcg Tablet) 50 mcg PO DAILY@0600 [facility] Last Admin: 11/12/22 05:37 Dose: 50 mcg Magnesium Hydroxide (Milk Of Magnesia 30 Ml Oral.Susp) 30 ml PO DAILY PRN PRN Reason: Constipation Olanzapine (Olanzapine 2.5 Mg Tablet) 2.5 mg PO BEDTIME [facility] Omeprazole (Omeprazole 20 Mg Capsule.Dr) 20 mg PO DAILY@0630 [facility] Last Admin: 11/12/22 05:37 Dose: 20 mg Ondansetron HCl (Ondansetron Odt 4 Mg Tab.Rapdis) 4 mg TRANSLINGU Q8H PRN PRN Reason: Nausea And Vomiting Prochlorperazine Maleate (Prochlorperazine Maleate 5 Mg Tablet) 5 mg PO DAILY PRN PRN Reason: Dyspepsia Trazodone HCl (Trazodone Hcl 25 Mg Halftab) 25 mg PO BEDTIME PRN PRN Reason: insomnia Last Admin: 11/11/22 20:42 Dose: 25 mg Allergies Allergies Allergy/AdvReac Type Severity Reaction Status Date / Time amoxicillin [From Augmentin] AdvReac Nausea and Verified 11/06/22 01:25 Vomiting aspirin AdvReac Nausea and Verified 11/06/22 01:27 Vomiting atenolol AdvReac Painful Verified 11/06/22 01:34 legs and moving toes clavulanic acid AdvReac Nausea and Verified 11/06/22 01:25 [From Augmentin] Vomiting doxycycline AdvReac Nausea Verified 11/06/22 01:33 erythromycin base AdvReac Nausea and Verified 11/06/22 01:25 Vomiting ibuprofen AdvReac Nausea and Verified 11/06/22 01:33 Vomiting levofloxacin [From Levaquin] AdvReac Nausea, Verified 11/06/22 01:25 Rash NSAIDS (Non-Steroidal AdvReac Nausea and Verified 11/06/22 01:27 Anti-Inflamma Vomiting raloxifene [From Evista] AdvReac Nausea and Verified 11/06/22 01:27 Vomiting terbinafine [From Lamisil] AdvReac Nausea and Verified 11/06/22 01:25 Vomiting Assessment & Plan Assessment & Plan (1) Adjustment disorder with mixed disturbance of emotions and conduct: Status: Acute Code(s): F43.25 - Adjustment disorder with mixed disturbance of emotions and conduct Plan Patient is an 82-year-old female with history of depression and SI, AFib, with frequent emergency room visits for palpitations but found to be within NSR... who lives at [facility] and presents for making suicidal statement.? Patient reports that she has been having a hard time since the person who lives [place] the [place] is planning his door frequently which she believes is to purposely bother her.? She denies SI saying that although she made a comment she would never actually hurt herself Formulation: -at this time will diagnose with adjustment disorder with disturbance of emotions and conduct; will need to further assess for dementia and other possible psychiatric processes including delusional/AVH -sending facility expresses concern is that patient may be having auditory hallucinations and delusional belief of the door slamming.? Sending facility reports that patient after 1 of her numerous visits to the ED, she will go home and immediately call the ambulance to come back to the hospital.? Will need collateral to assess -EKG normal sinus rhythm; review of labs CBC, lytes, BUN/creatinine WNL; COVID negative; on admission, reordered lytes, BUN/creatinine and liver enzymes and within normal limits does not appear UA was ordered so will order one now -Patient's sister Ashlee Mendez is her healthcare proxy HOSPITAL COURSE: 11/07 remains pleasant; anxious; reports heard door slamming last night which is the report she has at [facility]; this leans towards more likely being AH but nursing staff reports it is possible door was slammed near by her room last night. Continue current treatment plan PLAN: Section 12 b Q 15 minute checks Continue home meds Will gather collateral UA Pending (not done by sending facility) Paroxysmal atrial flutter Continue metoprolol, Eliquis Normocytic anemia, chronic Patient apparently has had chronic stable anemia since 2000 Most current H&H stable at 11.2/36.6 GERD Continue pantoprazole Hypothyroidism Continue levothyroxine HLD Continue statin HTN Continue furosemide Plan 1. Gather collateral information we will try to contact her family and get more information. 2. Continue with same medications. 3. Follow-up with Medicine regarding medical concerns. 4. Start Zyprexa 2.5 mg p.o. q.h.s. to target paranoia Reason for continued inpatient stay Substantial Risk for: inability to function, rapid decompensation and med/psych decompensation Time Spent With Patient Time: Total time managing care of this patient today __20__ minutes.
[2022-11-12] MEDS: Acetaminophen 325 MG TABLET 650 MG PO (12:36)
--- NOTE | 2022-11-12 15:37 | PC.NURSE ---
Patient ambulating with a steady gait, organized thought process, able to navigate the milieu safely with her walker. Bed Alarm not indicated and removed.
[2022-11-12 18:00] VITALS: BP 128/68; PULSE 93; RESP 16; TEMP 36.1; O2SAT 97
[2022-11-12] MEDS: OLANZapine 2.5 MG TABLET PO (20:05)
[2022-11-12] MEDS: traZODone HCL 25 MG HALFTAB PO (20:05)
[2022-11-13] MEDS: Levothyroxine Sodium 50 MCG TABLET PO (06:11)
[2022-11-13] MEDS: Omeprazole 20 MG CAPSULE.DR PO (06:11)
[2022-11-13 07:30] VITALS: BP 118/61; PULSE 96; RESP 16; TEMP 36.2; O2SAT 96
[2022-11-13] MEDS: Apixaban 2.5 MG TABLET PO ×2 (08:56→20:48)
[2022-11-13] MEDS: Furosemide 20 MG TABLET PO (08:56)
[2022-11-13] MEDS: Atorvastatin Calcium 40 MG TABLET PO (08:56)
[2022-11-13] MEDS: Gabapentin 100 MG CAPSULE 200 MG PO ×2 (08:56→20:48)
[2022-11-13] MEDS: Acetaminophen 325 MG TABLET 650 MG PO ×2 (11:12→20:47)
--- NOTE | 2022-11-13 11:39 | P.PNPSI_ITS ---
Subjective Subjective Date of Service: 11/13/22 Reason For Visit: Anxiety Disorder Interim History: c/o back pain. believes she is going home soon. states tylenol does not help her back pain and she has percocet at home. per review of record, no percocet noted on med rec. case d/w nursing staff. will continue current mgmt. per staff, VSS. sleeping and eating well. Mental Status Exam Mental Status Exam Patient Appearance: Well Grooomed and Appropriate Patient Orientation: Person and Situation Level of Consciousness: Awake and Appropriate Patient Behavior: Guarded and Passive Mood Description: Withdrawn and Constricted Affect Description: Calm Patient Cognition Impaired: Yes Ability to Follow Directions: Good Speech Pattern: Clear Hallucinations: None Delusions: Paranoid Ideation Thought Process: Distracted and Evasive Thought Content: positive for [place] and positive for Poverty of Content Judgement: Fair Diagnostics Vital Signs (24Hr): Vital Signs - 24 hr 11/12/22 18:00 11/13/22 07:30 Temperature 97 F 97.2 F Pulse Rate 93 96 Respiratory Rate 16 16 Blood Pressure 128/68 118/61 Pulse Oximetry 97 96 Oxygen Delivery Method Room Air Room Air BMI result Body Mass Index 27.0 Labs 11/07/22 07:00 Medications Medications Current Medications Acetaminophen (Acetaminophen 325 Mg Tablet) 650 mg PO Q6H PRN PRN Reason: Headache/Pain Mild Scale (1-3) Last Admin: 11/13/22 11:12 Dose: 650 mg Al Hydroxide/Mg Hydroxide (Magnesium Hydrox/Alum Hydrox 30 Ml Oral.Susp) 30 ml PO Q6H PRN PRN Reason: Heartburn/Nausea Albuterol Sulfate (Albuterol Sulfate 90 Mcg 8 Gm Inhaler) 2 puff INHALE Q4H PRN PRN Reason: Wheezing Apixaban (Apixaban 2.5 Mg Tablet) 2.5 mg PO BID [facility] Last Admin: 11/13/22 08:56 Dose: 2.5 mg Atorvastatin Calcium (Atorvastatin Calcium 40 Mg Tablet) 40 mg PO DAILY [facility] Last Admin: 11/13/22 08:56 Dose: 40 mg Furosemide (Furosemide 20 Mg Tablet) 20 mg PO DAILY [facility]; Protocol Last Admin: 11/13/22 08:56 Dose: 20 mg Gabapentin (Gabapentin 100 Mg Capsule) 200 mg PO BID [facility] Last Admin: 11/13/22 08:56 Dose: 200 mg Levothyroxine Sodium (Levothyroxine Sodium 50 Mcg Tablet) 50 mcg PO DAILY@0600 [facility] Last Admin: 11/13/22 06:11 Dose: 50 mcg Magnesium Hydroxide (Milk Of Magnesia 30 Ml Oral.Susp) 30 ml PO DAILY PRN PRN Reason: Constipation Olanzapine (Olanzapine 2.5 Mg Tablet) 2.5 mg PO BEDTIME [facility] Last Admin: 11/12/22 20:05 Dose: 2.5 mg Omeprazole (Omeprazole 20 Mg Capsule.Dr) 20 mg PO DAILY@0630 [facility] Last Admin: 11/13/22 06:11 Dose: 20 mg Ondansetron HCl (Ondansetron Odt 4 Mg Tab.Rapdis) 4 mg TRANSLINGU Q8H PRN PRN Reason: Nausea And Vomiting Prochlorperazine Maleate (Prochlorperazine Maleate 5 Mg Tablet) 5 mg PO DAILY PRN PRN Reason: Dyspepsia Trazodone HCl (Trazodone Hcl 25 Mg Halftab) 25 mg PO BEDTIME PRN PRN Reason: insomnia Last Admin: 11/12/22 20:05 Dose: 25 mg Allergies Allergies Allergy/AdvReac Type Severity Reaction Status Date / Time amoxicillin [From Augmentin] AdvReac Nausea and Verified 11/06/22 01:25 Vomiting aspirin AdvReac Nausea and Verified 11/06/22 01:27 Vomiting atenolol AdvReac Painful Verified 11/06/22 01:34 legs and moving toes clavulanic acid AdvReac Nausea and Verified 11/06/22 01:25 [From Augmentin] Vomiting doxycycline AdvReac Nausea Verified 11/06/22 01:33 erythromycin base AdvReac Nausea and Verified 11/06/22 01:25 Vomiting ibuprofen AdvReac Nausea and Verified 11/06/22 01:33 Vomiting levofloxacin [From Levaquin] AdvReac Nausea, Verified 11/06/22 01:25 Rash NSAIDS (Non-Steroidal AdvReac Nausea and Verified 11/06/22 01:27 Anti-Inflamma Vomiting raloxifene [From Evista] AdvReac Nausea and Verified 11/06/22 01:27 Vomiting terbinafine [From Lamisil] AdvReac Nausea and Verified 11/06/22 01:25 Vomiting Assessment & Plan Assessment & Plan (1) Adjustment disorder with mixed disturbance of emotions and conduct: Status: Acute Code(s): F43.25 - Adjustment disorder with mixed disturbance of emotions and conduct Plan Patient is an 82-year-old female with history of depression and SI, AFib, with frequent emergency room visits for palpitations but found to be within NSR... who lives at [facility] and presents for making suicidal statement.? Patient reports that she has been having a hard time since the person who lives across the [place] is planning his door frequently which she believes is to purposely bother her.? She denies SI saying that although she made a comment she would never actually hurt herself Formulation: -at this time will diagnose with adjustment disorder with disturbance of emotions and conduct; will need to further assess for dementia and other possible psychiatric processes including delusional/AVH -sending facility expresses concern is that patient may be having auditory hallucinations and delusional belief of the door slamming.? Sending facility reports that patient after 1 of her numerous visits to the ED, she will go home and immediately call the ambulance to come back to the hospital.? Will need collateral to assess -EKG normal sinus rhythm; review of labs CBC, lytes, BUN/creatinine WNL; COVID negative; on admission, reordered lytes, BUN/creatinine and liver enzymes and within normal limits does not appear UA was ordered so will order one now -Patient's sister Ashlee Mendez is her healthcare proxy HOSPITAL COURSE: 11/07 remains pleasant; anxious; reports heard door slamming last night which is the report she has at [facility]; this leans towards more likely being AH but nursing staff reports it is possible door was slammed near by her room last night. Continue current treatment plan PLAN: Section 12 b Q 15 minute checks Continue home meds Will gather collateral UA Pending (not done by sending facility) Paroxysmal atrial flutter Continue metoprolol, Eliquis Normocytic anemia, chronic Patient apparently has had chronic stable anemia since 2000 Most current H&H stable at 11.2/36.6 GERD Continue pantoprazole Hypothyroidism Continue levothyroxine HLD Continue statin HTN Continue furosemide Plan 1. Gather collateral information we will try to contact her family and get more information. 2. Continue with same medications. 3. Follow-up with Medicine regarding medical concerns. 4. Start Zyprexa 2.5 mg p.o. q.h.s. to target paranoia Reason for continued inpatient stay Substantial Risk for: inability to function and rapid decompensation Time Spent With Patient Time: Total time managing care of this patient today __25__ minutes.
[2022-11-13 18:00] VITALS: BP 115/84; PULSE 90; RESP 18; TEMP 36.4; O2SAT 93
[2022-11-13] MEDS: OLANZapine 2.5 MG TABLET PO (20:48)
[2022-11-13] MEDS: traZODone HCL 25 MG HALFTAB PO (20:48)
[2022-11-14] MEDS: Acetaminophen 325 MG TABLET 650 MG PO ×2 (02:52→21:02)
[2022-11-14 06:00] VITALS: BP 119/57; PULSE 98; RESP 18; TEMP 36.7; O2SAT 95
[2022-11-14] MEDS: Levothyroxine Sodium 50 MCG TABLET PO (06:36)
[2022-11-14] MEDS: Omeprazole 20 MG CAPSULE.DR PO (06:36)
[2022-11-14] MEDS: Apixaban 2.5 MG TABLET PO ×2 (09:28→21:01)
[2022-11-14] MEDS: Gabapentin 100 MG CAPSULE 200 MG PO ×2 (09:28→21:02)
[2022-11-14] MEDS: Atorvastatin Calcium 40 MG TABLET PO (09:28)
[2022-11-14] MEDS: Furosemide 20 MG TABLET PO (09:28)
--- NOTE | 2022-11-14 11:12 | HO.PSYCHPN ---
Subjective Subjective Date of Service: 11/14/22 Reason For Visit: Anxiety Disorder Interim History: calm, cooperative. feeling OK physically and mentally. concerned about returning to [facility] due to neighbor who slams his door all day. otherwise no issues or concerns. per staff, no concerns. Mental Status Exam Mental Status Exam Patient Appearance: Well Grooomed and Appropriate Patient Orientation: Person and Situation Level of Consciousness: Awake and Appropriate Patient Behavior: Guarded and Passive Mood Description: Withdrawn and Constricted Affect Description: Calm Patient Cognition Impaired: Yes Ability to Follow Directions: Good Speech Pattern: Clear Hallucinations: None Delusions: Paranoid Ideation Thought Process: Distracted and Evasive Thought Content: positive for [place] and positive for Poverty of Content Judgement: Fair Diagnostics Vital Signs (24Hr): Vital Signs - 24 hr 11/13/22 18:00 11/14/22 06:00 Temperature 97.5 F 98.1 F Pulse Rate 90 98 Respiratory Rate 18 18 Blood Pressure 115/84 119/57 L Pulse Oximetry 93 95 Oxygen Delivery Method Room Air Room Air BMI result Body Mass Index 27.0 Labs 11/07/22 07:00 Medications Medications Current Medications Acetaminophen (Acetaminophen 325 Mg Tablet) 650 mg PO Q6H PRN PRN Reason: Headache/Pain Mild Scale (1-3) Last Admin: 11/14/22 02:52 Dose: 650 mg Al Hydroxide/Mg Hydroxide (Magnesium Hydrox/Alum Hydrox 30 Ml Oral.Susp) 30 ml PO Q6H PRN PRN Reason: Heartburn/Nausea Albuterol Sulfate (Albuterol Sulfate 90 Mcg 8 Gm Inhaler) 2 puff INHALE Q4H PRN PRN Reason: Wheezing Apixaban (Apixaban 2.5 Mg Tablet) 2.5 mg PO BID [facility] Last Admin: 11/14/22 09:28 Dose: 2.5 mg Atorvastatin Calcium (Atorvastatin Calcium 40 Mg Tablet) 40 mg PO DAILY [facility] Last Admin: 11/14/22 09:28 Dose: 40 mg Furosemide (Furosemide 20 Mg Tablet) 20 mg PO DAILY [facility]; Protocol Last Admin: 11/14/22 09:28 Dose: 20 mg Gabapentin (Gabapentin 100 Mg Capsule) 200 mg PO BID [facility] Last Admin: 11/14/22 09:28 Dose: 200 mg Levothyroxine Sodium (Levothyroxine Sodium 50 Mcg Tablet) 50 mcg PO DAILY@0600 [facility] Last Admin: 11/14/22 06:36 Dose: 50 mcg Magnesium Hydroxide (Milk Of Magnesia 30 Ml Oral.Susp) 30 ml PO DAILY PRN PRN Reason: Constipation Olanzapine (Olanzapine 2.5 Mg Tablet) 2.5 mg PO BEDTIME [facility] Last Admin: 11/13/22 20:48 Dose: 2.5 mg Omeprazole (Omeprazole 20 Mg Capsule.Dr) 20 mg PO DAILY@0630 [facility] Last Admin: 11/14/22 06:36 Dose: 20 mg Ondansetron HCl (Ondansetron Odt 4 Mg Tab.Rapdis) 4 mg TRANSLINGU Q8H PRN PRN Reason: Nausea And Vomiting Prochlorperazine Maleate (Prochlorperazine Maleate 5 Mg Tablet) 5 mg PO DAILY PRN PRN Reason: Dyspepsia Trazodone HCl (Trazodone Hcl 25 Mg Halftab) 25 mg PO BEDTIME PRN PRN Reason: insomnia Last Admin: 11/13/22 20:48 Dose: 25 mg Allergies Allergies Allergy/AdvReac Type Severity Reaction Status Date / Time amoxicillin [From Augmentin] AdvReac Nausea and Verified 11/06/22 01:25 Vomiting aspirin AdvReac Nausea and Verified 11/06/22 01:27 Vomiting atenolol AdvReac Painful Verified 11/06/22 01:34 legs and moving toes clavulanic acid AdvReac Nausea and Verified 11/06/22 01:25 [From Augmentin] Vomiting doxycycline AdvReac Nausea Verified 11/06/22 01:33 erythromycin base AdvReac Nausea and Verified 11/06/22 01:25 Vomiting ibuprofen AdvReac Nausea and Verified 11/06/22 01:33 Vomiting levofloxacin [From Levaquin] AdvReac Nausea, Verified 11/06/22 01:25 Rash NSAIDS (Non-Steroidal AdvReac Nausea and Verified 11/06/22 01:27 Anti-Inflamma Vomiting raloxifene [From Evista] AdvReac Nausea and Verified 11/06/22 01:27 Vomiting terbinafine [From Lamisil] AdvReac Nausea and Verified 11/06/22 01:25 Vomiting Assessment & Plan Assessment & Plan (1) Adjustment disorder with mixed disturbance of emotions and conduct: Status: Acute Code(s): F43.25 - Adjustment disorder with mixed disturbance of emotions and conduct Plan Patient is an 82-year-old female with history of depression and SI, AFib, with frequent emergency room visits for palpitations but found to be within NSR... who lives at [facility] and presents for making suicidal statement.? Patient reports that she has been having a hard time since the person who lives across the [place] is planning his door frequently which she believes is to purposely bother her.? She denies SI saying that although she made a comment she would never actually hurt herself Formulation: -at this time will diagnose with adjustment disorder with disturbance of emotions and conduct; will need to further assess for dementia and other possible psychiatric processes including delusional/AVH -sending facility expresses concern is that patient may be having auditory hallucinations and delusional belief of the door slamming.? Sending facility reports that patient after 1 of her numerous visits to the ED, she will go home and immediately call the ambulance to come back to the hospital.? Will need collateral to assess -EKG normal sinus rhythm; review of labs CBC, lytes, BUN/creatinine WNL; COVID negative; on admission, reordered lytes, BUN/creatinine and liver enzymes and within normal limits does not appear UA was ordered so will order one now -Patient's sister Ashlee Mendez is her healthcare proxy HOSPITAL COURSE: 11/07 remains pleasant; anxious; reports heard door slamming last night which is [facility]; this leans towards more likely being AH but nursing staff reports it is possible door was slammed near by her room last night. Continue current treatment plan PLAN: Section 12 b Q 15 minute checks Continue home meds Will gather collateral UA Pending (not done by sending facility) Paroxysmal atrial flutter Continue metoprolol, Eliquis Normocytic anemia, chronic Patient apparently has had chronic stable anemia since 2000 Most current H&H stable at 11.2/36.6 GERD Continue pantoprazole Hypothyroidism Continue levothyroxine HLD Continue statin HTN Continue furosemide Plan 1. Gather collateral information we will try to contact her family and get more information. 2. Continue with same medications. 3. Follow-up with Medicine regarding medical concerns. 4. Start Zyprexa 2.5 mg p.o. q.h.s. to target paranoia Reason for continued inpatient stay Substantial Risk for: inability to function and rapid decompensation Time Spent With Patient Time: Total time managing care of this patient today ____ minutes.
[2022-11-14 18:00] VITALS: BP 139/69; PULSE 99; RESP 18; TEMP 36; O2SAT 99
[2022-11-14] MEDS: OLANZapine 2.5 MG TABLET PO (21:02)
[2022-11-15] MEDS: Levothyroxine Sodium 50 MCG TABLET PO (05:53)
[2022-11-15] MEDS: Omeprazole 20 MG CAPSULE.DR PO (05:53)
--- NOTE | 2022-11-15 08:01 | PM.PSYDC ---
DS: Providers Provider Date of Service: 11/15/22 Date of admission: 11/05/22 21:34 Date of discharge: 11/15/22 Primary care physician: Unknown Physician Consults: 11/06/22 01:47 Consult to Hospitalist Routine Comment: Consulting Provider: Hospitalist Reason For Exam: admission physical DS: Diagnosis Discharge Diagnosis (1) Adjustment disorder with mixed disturbance of emotions and conduct: Status: Acute DS: Medications Discharge Medications Home Medications: Home Medications Medication Instructions Recorded Confirmed albuterol 90 mcg/actuation aerosol 180 mcg inhalation Q4H PRN Wheezing 11/06/22 11/06/22 inhaler aluminum-mag hydroxide-simethicone 30 ml PO Q8H PRN Indigestion 11/06/22 11/06/22 225 mg-200 mg-25 mg/5 mL oral susp apixaban 2.5 mg tablet 2.5 mg PO BID 11/06/22 11/06/22 atorvastatin 40 mg tablet 40 mg PO DAILY 11/06/22 11/06/22 bupropion HCl 150 mg 24 hr tablet, 150 mg PO DAILY 11/06/22 11/06/22 extended release duloxetine 30 mg capsule,delayed 30 mg PO DAILY 11/06/22 11/06/22 release furosemide 20 mg tablet 20 mg DAILY 11/06/22 11/06/22 gabapentin 100 mg capsule 200 mg PO BID 11/06/22 11/06/22 levothyroxine 50 mcg tablet 50 mcg PO DAILY 11/06/22 11/06/22 metoprolol tartrate 50 mg tablet 50 mg PO BID 11/06/22 11/06/22 ondansetron HCl 4 mg tablet 4 mg PO Q8H PRN Nausea And Vomiting 11/06/22 11/06/22 pantoprazole 40 mg tablet,delayed 40 mg PO DAILY 11/06/22 11/06/22 release prochlorperazine maleate 5 mg 5 mg PO DAILY PRN Dyspepsia 11/06/22 11/06/22 tablet trazodone 50 mg tablet 50 mg PO BEDTIME 11/06/22 11/06/22 Mental Status Exam Mental Status Exam Patient Appearance: Well Grooomed and Appropriate Patient Orientation: Person and Situation Level of Consciousness: Awake and Appropriate Mood Description: Calm Affect Description: Constricted Patient Cognition Impaired: Yes Ability to Follow Directions: Good Speech Pattern: Clear Hallucinations: None Delusions: Paranoid Ideation Thought Process: Distracted and Slowed Thinking Thought Content: positive for [place] and positive for [place] Judgement: Fair DS: Summary Hospital Course Hospital Course: The patient was initially admitted for psychotic symptoms against and neighbor stating that she cannot sleep since he wakes her up all night long. According to collateral information there is no neighbor. Please see the HPI of the admission note for further details. On admission, the patient reported that she was feeling very tired since she could not sleep at night. When she was in the unit she could sleep well, we did not start any medications initially but after gather more collateral information and realizing that she was paranoid we started the very low dose of Zyprexa at night to help her sleep and relieve psychotic symptoms. The patient did not experimented any side effects and she fell much better. Since there were no safety concerns discharge planning was discussed and she will go back to her facility. Time spent discussing smoking cessation with patient: 3 to 10 minutes Status at Discharge Cognitive/behavioral status at discharge: Impaired at baseline Functional status at discharge: uses cane/walker Overall status at discharge: patient is back to baseline Time Spent with Patient Time attestation: Total time managing care of this patient today __30__ minutes. Time spent: Less than 30 minutes Discharge Plan Discharge Anticipated Discharge Date/Time: 11/15/22 10:00 Patient Disposition: Home, Self-Care Discharge Diagnosis: Neuro cognitive disorder Psychosis Referrals: Dr. Jeffery - PCP [Other] - 11/22/22 11:15 am (appointment ; 11/22/2022 @ 11:15am ) Dr. Ute Lamas - Psych [Other] - 12/22/22 2:30 pm (Appointment scheduled for: 12/22/22 @ 2:20pm This is at second floor @ [facility] ) Physician,Unknown J [Primary Care Provider] - 1 Week Discharge Medications: New albuterol sulfate [Ventolin HFA] 90 mcg/actuation Hfa Aerosol Inhaler 2 puff inhalation Q4H PRN (Reason: Wheezing) 30 Days Qty: 1 0RF acetaminophen 325 mg Tablet 650 mg PO Q6H PRN (Reason: Headache/Pain Mild Scale (1-3)) Qty: 60 0RF olanzapine 2.5 mg Tablet 2.5 mg PO BEDTIME 30 Days Qty: 30 0RF omeprazole 20 mg Capsule,Delayed Release(Dr/Ec) 20 mg PO DAILY@0630 30 Days Qty: 30 0RF Continued atorvastatin 40 mg Tablet 40 mg PO DAILY 30 Days Qty: 30 0RF prochlorperazine maleate 5 mg Tablet 5 mg PO DAILY PRN (Reason: Dyspepsia) 30 Days Qty: 30 0RF levothyroxine 50 mcg Tablet 50 mcg PO DAILY 30 Days Qty: 30 0RF gabapentin 100 mg Capsule 200 mg PO BID 30 Days Qty: 120 0RF apixaban 2.5 mg Tablet 2.5 mg PO BID 30 Days Qty: 60 0RF Changed furosemide 20 mg Tablet 20 mg PO DAILY 30 Days Qty: 30 0RF Discontinued Maalox Plus 225-200-25 mg/5 mL Suspension 30 ml PO Q8H PRN (Reason: Indigestion) trazodone 50 mg Tablet 50 mg PO BEDTIME ondansetron HCl 4 mg Tablet 4 mg PO Q8H PRN (Reason: Nausea And Vomiting) pantoprazole 40 mg Tablet,Delayed Release (Dr/Ec) 40 mg PO DAILY metoprolol tartrate 50 mg Tablet 50 mg PO BID albuterol 90 mcg/actuation Aerosol 180 mcg INHALATION Q4H PRN (Reason: Wheezing) bupropion HCl 150 mg Tablet Extended Release 24 Hr 150 mg PO DAILY duloxetine 30 mg Capsule,Delayed Release(Dr/Ec) 30 mg PO DAILY Discharge Orders: Discharge Order (Routine); Ordered 11/15/22 Ordered By: Britton Osorio Activity on Discharge: As tolerated Stand Alone Forms: Patient Portal Discharge page Care Plan Goals: Care plan goals achieved in this admission Health Concerns: Continue treatment as per primary care physician in the community Plan of Treatment: Continue medication treatment as an outpatient Assessment: Elderly female with a past history of medical comorbidities and neuro cognitive disorder admitted for psychotic symptoms. She was started on a low-dose Zyprexa with for improvement of her symptoms and no evidence of side effects. No safety concerns at this moment.
[2022-11-15 08:02] VITALS: BP 138/75; PULSE 92; RESP 18; TEMP 36.2; O2SAT 100
[2022-11-15] MEDS: Furosemide 20 MG TABLET PO (08:24)
[2022-11-15] MEDS: Gabapentin 100 MG CAPSULE 200 MG PO (08:24)
[2022-11-15] MEDS: Acetaminophen 325 MG TABLET 650 MG PO (08:24)
[2022-11-15] MEDS: Atorvastatin Calcium 40 MG TABLET PO (08:24)
[2022-11-15] MEDS: Apixaban 2.5 MG TABLET PO (08:24)
== END 2022-11-15 11:00 | disposition home or self-care (01) | DRG 882 ==
PROVIDERS: Psychiatry & Neurology Psychiatry; Admitting Provider Psychiatry & Neurology Psychiatry; Visit Provider Psychiatry & Neurology Psychiatry
DX: F43.25 Adjustment disorder with mixed disturbance of emotions and conduct (principal); I48.92 Unspecified atrial flutter; E78.5 Hyperlipidemia, unspecified; J45.20 Mild intermittent asthma, uncomplicated; I10 Essential (primary) hypertension; D64.9 Anemia, unspecified; K21.9 Gastro-esophageal reflux disease without esophagitis; E03.9 Hypothyroidism, unspecified; Z79.01 Long term (current) use of anticoagulants; Z79.890 Hormone replacement therapy; Z79.899 Other long term (current) drug therapy
CPT/HCPCS: 36415; 80053; 81001